=== PATIENT | male | born 1940 | race Caucasian/White ===

== ENCOUNTER 2016-11-21 15:11 | Inpatient (IN) | payer OTHER, MEDICARE ==
[~2016-11-21] VITALS: Ht 172.7 cm; Wt 122.5 kg
[~2016-11-21 15:11] MED LIST: AMBI10TA PO; ASPI1TAB PO; BRIM0.2S OU; COLA100C5 PO; COMBAER6 INH; CYCL10TA PO; DRIS50002 PO; FEBU40TA PO; FISH1000 PO; HYDR10TAB PO; INSUN SC; LATA5OPD OU; LORA10TA2 PO; LUBRIFRESH PM OU; MIRA3350 PO; MUPI2OI TOP; NEPHTA PO; OMEP20CA3 PO; PHOS667C5 PO; SIMV40TA2 PO; SODI15SS PO; TESS100C PO; VALS1TAB49 PO
[2016-11-21] MEDS ORDERED: CEFTAROLINE FOSAMIL 600 MG in D5W MINI-BAG PLUS 50 ML IV ONE (18:15)
[2016-11-21 19:28] LABS: BASO # 0.1 10^3/uL (0.0-0.2); BASO % 0.7 % (0.0-1.0); EOS # 0.4 10^3/uL (0.0-0.50); EOS % 3.7 % (0.0-3.0); IMMATURE GRANULOCYTE % 0.4 % (0-0); LYMPH # 1.8 10^3/uL (1.5-4.5); LYMPH % 16.7 % (24.0-44.0); MEAN CORPUSCULAR HEMOGLOBIN 30.8 pg (27.0-33.0); MEAN CORPUSCULAR HGB CONC 32.7 g/dl (32.0-36.5); MEAN CORPUSCULAR VOLUME 94.3 fl (80.0-96.0); MONO # 0.8 10^3/uL (0.0-0.8); MONO % 7.4 % (0.0-5.0); NEUTROPHILS # 7.5 10^3/uL (1.8-7.7); NEUTROPHILS % 71.1 % (36.0-66.0); PLATELET COUNT, AUTOMATED 325 10^3/uL (150-450); RED CELL DISTRIBUTION WIDTH 14.6 % (11.5-14.5); WHITE BLOOD COUNT 10.6 10^3/uL (4.0-10.0)
[2016-11-21] MEDS ORDERED: VITA100066 PO (19:34)
[2016-11-21] MEDS ORDERED: CLEADRO8 OU (19:34)
[2016-11-21] MEDS ORDERED: [UNRECOGNIZED DRUG - CODE] OU (19:34)
[2016-11-21] MEDS ORDERED: ALBU83IN INH (19:34)
[2016-11-21] MEDS ORDERED: VITA10002 PO (19:34)
[2016-11-21] MEDS ORDERED: SIMV20TA2 PO (19:34)
[2016-11-21] MEDS ORDERED: TYLE1TAB5 PO (19:34)
[2016-11-21 19:46] LABS: ALBUMIN 3.8 GM/DL (3.2-5.2); ALBUMIN/GLOBULIN RATIO 1.03 (1.00-1.93); ALKALINE PHOSPHATASE 72 U/L (45-117); ALT/SGPT 24 U/L (12-78); ANION GAP 15 MEQ/L (8-16); AST/SGOT 15 U/L (15-37); BILIRUBIN,DIRECT < 0.1 MG/DL (0.0-0.2); BILIRUBIN,TOTAL 0.3 MG/DL (0.2-1.0); BLOOD UREA NITROGEN 28 MG/DL (7-18); CALCIUM LEVEL 7.8 MG/DL (8.8-10.2); CARBON DIOXIDE LEVEL 26 MEQ/L (21-32); CHLORIDE LEVEL 94 MEQ/L (98-107); CREATININE FOR GFR 5.21 MG/DL (0.70-1.30); GLOMERULAR FILTRATION RATE 11.6 (>42); GLUCOSE, FASTING 191 MG/DL (83-110); MAGNESIUM LEVEL 1.7 MG/DL (1.8-2.4); PHOSPHORUS LEVEL 3.5 MG/DL (2.5-4.9); POTASSIUM SERUM 3.1 MEQ/L (3.5-5.1); SODIUM LEVEL 135 MEQ/L (136-145); TOTAL PROTEIN 7.5 GM/DL (6.4-8.2)
[2016-11-21] MEDS: LATANOPROST 0.005% OPHTH SOLN 2.5 ML OU SCH (21:00)
[2016-11-21] MEDS: VALSARTAN 40MG TABLET (DIOVAN) PO SCH (21:00)
[2016-11-21] MEDS: LACRILUBE (AKWA TEARS) OPHTH OINT 3.5 GM OU SCH (21:00)
[2016-11-21] MEDS ORDERED: GLUCAGON FOR INJ 1 MG VIAL (J1610) SC PRN (21:15)
[2016-11-21] MEDS ORDERED: DEXTROSE 50% 50 ML SYRINGE IV PRN (21:15)
[2016-11-21] MEDS ORDERED: BISACODYL 5 MG TAB PO PRN (21:15)
[2016-11-21] MEDS ORDERED: GLUCOSE 4 GM CHEW TABLET PO PRN (21:15)
[2016-11-21] MEDS: IPRATROPIUM 0.5MG/ALBUTEROL 2.5MG INH SOL UD 3ML (DUONEB)(J7620) INH SCH (23:37)
[2016-11-21] MEDS: zolPIDEM TARTRATE 10MG TAB PO SCH (23:57)
[2016-11-21] MEDS: SENOKOT S TAB PO SCH (23:57)
[2016-11-21] MEDS: CYCLOBENZAPRINE 10 MG TAB PO SCH (23:57)
[2016-11-21] MEDS: SIMVASTATIN 20 MG TAB PO SCH (23:57)
[2016-11-22] VITALS: BP 135/78
[2016-11-22] MEDS: ACETAMINOPHEN 500 MG TAB PO PRN ×2 (00:02→12:08)
[2016-11-22] MEDS ORDERED: MAG SULF 1GM/100ML (MAG RUN) 1 GM in APPROPRIATE DILUENT 1 EA IV ONE (01:15)
[2016-11-22] MEDS: HumaLOG INSULIN (NovoLOG) PER UNIT SC SCH ×5 (01:18→21:18)
[2016-11-22 06:00] VITALS: BP 116/77
[2016-11-22] MEDS: HEPARIN SOD (PORCINE) 5000 UNITS/ML VIAL SC SCH ×3 (06:06→21:17)
--- NOTE | 2016-11-22 06:59 | HPE ---
DATE OF ADMISSION: 11/21/2016 PRIMARY CARE PROVIDER: Dr. Cobb CHIEF COMPLAINT: Patient was sent from dialysis unit by Dr. Cobb for left lower extremity open wound with discharge and surrounding cellulitis. PAST MEDICAL HISTORY: 1. End-stage renal disease (ESRD) on hemodialysis Monday, Monday, Monday. 2. Chronic obstructive pulmonary disease (COPD). 3. Diabetes. 4. Morbid obesity. 5. Chronic back pain. 6. Gastroesophageal reflux disease (GERD). 7. Hyperlipidemia. 8. Gout. 9. Vitamin D deficiency. 10. Hyperphosphatemia. 11. Glaucoma. 12. Depression. 13. Chronic bilateral venous stasis. HISTORY OF PRESENT ILLNESS: This is a 76-year-old male with the above past medical history who was at his dialysis unit getting his routine hemodialysis today, when he was seen by the member services representative and was noted to have open wound on the left day with surrounding increased redness suggestive of cellulitis, who was sent to the emergency room for evaluation. In the emergency department (ED), patient had a white count of 10.6. However, he was afebrile. He did have a small superficial skin breakdown on the left day with some serosanguineous discharges, with some surrounding increased redness compared to his chronic redness associated with his chronic venous stasis. As per patient, this happened about 4 days ago when he had bumped his leg into an obstacle. Since then, he has been dressing it at home. However, it does not seem to be improving. He denied any fever or chills. Denied any chest pain, shortness of breath. Denied any abdominal pain, nausea, vomiting or diarrhea. PAST SURGICAL HISTORY: Appendectomy, AV fistula creation and AV graft placement previously, which failed and PermaCath placement previously, also. SOCIAL HISTORY: Does not smoke. Does not drink. There is no history of recreational drug abuse. FAMILY HISTORY: Significant for diabetes and end-stage renal disease. Patient' s daughter is also on dialysis. ALLERGIES: Patient is allergic to CODEINE, SUDAFED and OXYCODONE. HOME MEDICATIONS: - albuterol sulfate 2.5 mg inhalation twice a day - Combivent MDI one puff inhalation four times a day - aspirin 81 mg daily - brimonidine one drop both eye twice a day - calcium acetate 1334 mg by mouth with meals - cholecalciferol 1000 units by mouth daily - Clear Eyes for dry eyes one drop both eye twice a day - cyanocobalamin 1000 mcg by mouth daily - cyclobenzaprine 10 mg at bedtime - docusate sodium 100 mg by mouth twice a day - Uloric 40 mg by mouth three times a week (Monday, and Monday) - fish oil 2000 mg by mouth daily - NPH insulin 30 units subcutaneously twice a day - latanoprost eye drop one drop both eye at bedtime - loratadine 10 mg by mouth daily - Lubricant Eye Nighttime one ointment both eye at bedtime - mupirocin ointment one dose topically daily as needed, skin sores to be applied to the leg - omeprazole 40 mg by mouth daily - MiraLAX one packet by mouth daily - simvastatin 20 mg by mouth at bedtime - Kayexalate 15 gram by mouth once a week on Sundays - Tylenol Extra Strength PM 500/25 one tablet by mouth at bedtime - valsartan 40 mg by mouth twice a day - vitamin B complex, C and folic acid one capsule by mouth daily - vitamin D 50,000 units once a week - Ambien 10 mg by mouth at bedtime REVIEW OF SYSTEMS: Patient denied any shortness of breath. Denied any cough or phlegm. Denied any chest pain. Denied any abdominal pain, nausea, vomiting or diarrhea. He did complain of some constipation for the past 2 days. Has chronic low back pain. Does complain of the sore on his left day with some discharges for the past 4 days. However, does not complain of any increased pain. PHYSICAL EXAMINATION: Vital signs: Temperature 97.2. Pulse 88. Respiratory rate 20. Blood pressure 132/65. Pulse oximetry 92% in room air. General: Patient awake, alert, oriented times three, sitting up in chair, in no acute distress. HEENT: Normocephalic, atraumatic. Moist mucous membranes. Anicteric eyes. Chest: Clear to auscultation. Cardiovascular: S1, S2, regular. No rub, murmur or gallop. Abdomen: Obese, soft, nontender. Bowel sounds present. Extremities: Bilateral bipedal edema with chronic venous stasis changes. There is about 3 cm x 2 cm superficial ulceration on the left day with peeling skin and surrounding erythema. LABORATORY DATA: WBC 10.6, hemoglobin 13, platelet 325. Sodium 135, potassium 3.1, chloride 94, bicarbonate 26, BUN 28, creatinine 5.2, glucose 191, calcium 7.8, phosphorus 3.5, magnesium 1.7. Liver function tests are normal. ASSESSMENT AND PLAN: This is a 76-year-old male with end-stage renal disease on hemodialysis admitted for left leg cellulitis. Plan for left leg cellulitis: Will give the patient ceftaroline, will send blood cultures and wound cultures and adjust antibiotics based on cultures. ESRD: Patient got his hemodialysis today. He is again due for hemodialysis on Monday. He appears to be in acceptable volume status. COPD: Does not seem to be in any exacerbation. Will continue with albuterol MDI as per home dosage. Diabetes: Agent glucose acceptable control. Will continue with NPH and will also add lispro per sliding scale. Morbid obesity: Complicating care. Hypertension: Will continue with valsartan. Hyperlipidemia: Will continue with simvastatin. Gout: Will continue with Uloric. Chronic constipation: Will give Senokot-S as well as Dulcolax. Hyperphosphatemia: Will continue with PhosLo. Vitamin D deficiency: Will continue with home medications. Deep venous thrombosis (DVT) prophylaxis: Has been ordered. Gastrointestinal (GI) prophylaxis: Patient is on omeprazole. Will continue. MTDD
[2016-11-22] MEDS: IPRATROPIUM 0.5MG/ALBUTEROL 2.5MG INH SOL UD 3ML (DUONEB)(J7620) INH SCH ×2 (07:40→11:50)
[2016-11-22] MEDS: SENOKOT S TAB PO SCH ×2 (09:00→21:16)
[2016-11-22] MEDS: MIRALAX *UNIT DOSE* 17GM PACKET PO SCH (09:00)
[2016-11-22] MEDS ORDERED: ALBUTEROL SULFATE 2.5 MG/0.5 ML INH NEB SOLN INH SCH (09:00)
[2016-11-22] MEDS: CEFTAROLINE FOSAMIL 200 MG in D5W 50 ML IV SCH ×2 (09:17→21:18)
[2016-11-22] MEDS: CYANOCOBALAMIN 500 MCG TAB PO SCH (09:18)
[2016-11-22] MEDS: ASPIRIN 81 MG ENTERIC TAB PO SCH (09:18)
[2016-11-22] MEDS: CALCIUM ACETATE 667 MG GELCAP PO SCH ×3 (09:18→18:30)
[2016-11-22] MEDS: VITAMIN D 1,000 INTERNATIONAL UNITS TABLET PO SCH (09:18)
[2016-11-22] MEDS: LORATADINE 10 MG TAB PO SCH (09:19)
[2016-11-22] MEDS: OMEPRAZOLE 20 MG CAP PO SCH (09:19)
[2016-11-22] MEDS: VALSARTAN 40MG TABLET (DIOVAN) PO SCH ×2 (09:21→21:16)
[2016-11-22 11:09] LABS: MEAN CORPUSCULAR HEMOGLOBIN 30.6 pg (27.0-33.0); MEAN CORPUSCULAR HGB CONC 32.2 g/dl (32.0-36.5); MEAN CORPUSCULAR VOLUME 95.1 fl (80.0-96.0); RED CELL DISTRIBUTION WIDTH 14.2 % (11.5-14.5); WHITE BLOOD COUNT 9.3 10^3/uL (4.0-10.0)
[2016-11-22 11:37] LABS: CALCIUM LEVEL 8.7 MG/DL (8.8-10.2); CREATININE FOR GFR 6.99 MG/DL (0.70-1.30); GLOMERULAR FILTRATION RATE 8.2 (>42); MAGNESIUM LEVEL 1.9 MG/DL (1.8-2.4); POTASSIUM SERUM 3.4 MEQ/L (3.5-5.1)
[2016-11-22] MEDS: FEBUXOSTAT 40 MG TABLET (ULORIC) PO SCH (11:37)
[2016-11-22] MEDS: HumuLIN N INSULIN (NovoLIN N) PER UNIT SC SCH ×2 (11:37→21:17)
[2016-11-22] MEDS: NEPHRO-VIT TAB (NEPHROCAPS) PO SCH (11:37)
[2016-11-22 14:00] VITALS: BP 132/79
--- NOTE | 2016-11-22 15:31 | IPN ---
DATE: 11/22/2016 SUBJECTIVE: The patient is seen and examined in the room today. The patient stated he is feeling the same. No fever. No chills. Per patient, patient stated he bumped his leg on the left anterior day causing the skin breakage. Per record, the wound was examined during dialysis yesterday and there was some purulent discharge and there was some foul smelling from the wound. OBJECTIVE: VITAL SIGNS: Temperature is 97, pulse is 69, respirations 18, blood pressure is 116/77, pulse oximetry is 95% in room air. GENERAL: No sign of acute distress, alert and oriented times three. HEENT: Normocephalic, atraumatic. Extraocular motor grossly intact. CARDIOVASCULAR: Positive S1, S2, regular rate. LUNGS: Clear to auscultation bilaterally. ABDOMEN: Obese, soft, nontender, nondistended. Bowel sounds present. EXTREMITIES: There is some extensive bilateral lower extremity erythema below the knee. There are two superficial lacerations of the left day. Dressing was removed. At the time of examination, I cannot appreciate any purulent discharge. They do have some swelling around the skin breakage. There is bilateral lower extremity edema. LABORATORY DATA: WBC is 9.3, hemoglobin is 12.4, hematocrit 38.5, platelet count is 305. Sodium is 136, potassium is 3.4, chloride is 95, carbon dioxide 28, BUN 43, creatinine 6.99, GFR is 8.2, fasting glucose 270, calcium is 8.7, magnesium 1.9. Microbiology: Blood cultures are pending times two sets. ASSESSMENT AND PLAN: 1. Left lower extremity cellulitis. The patient is started on IV Teflaro. We will followup with the blood cultures. 2. End-stage renal disease. Nephrology consulted. At baseline, the patient is on a Monday, Monday and Monday dialysis schedule. 3. Chronic obstructive pulmonary disease (COPD). Currently, he does not have any exacerbation. Continue home medications. Continue nebulizer treatment as needed. 4. Diabetes. The patient will be on consistent-carbohydrate diet, on sliding scale. 5. Hypertension. Blood pressure is in the satisfactory range. The patient is on Diovan 40 mg by mouth twice a day. 6. Gastroesophageal reflux disease, on Prilosec 40 mg by mouth daily. 7. Hyperlipidemia, on simvastatin. 8. Gout, on Uloric. 9. History of depression. 10. History of glaucoma. 11. History of chronic bilateral venous stasis. 12. Deep vein thrombosis (DVT) prophylaxis. The patient is on heparin. MTDD
[2016-11-22] MEDS: IPRATROPIUM 0.5MG/ALBUTEROL 2.5MG INH SOL UD 3ML (DUONEB)(J7620) NEB SCH (20:00)
--- NOTE | 2016-11-22 21:05 | CR ---
DATE OF CONSULTATION: 11/22/2016 CONSULTATION REPORT FOR: Lisa Newton DO REASON FOR CONSULTATION: Is to assist in the management of end-stage renal disease in this gentleman who is admitted with cellulitis. HISTORY OF PRESENT ILLNESS: Mr. Mota is a 76-year-old gentleman with known history of diabetes, hypertension, coronary artery disease, end-stage renal disease and congestive heart failure. He was sent to emergency room at [facility] from dialysis due to left lower extremity cellulitis. Apparently he had a small ulcer and his was trying to take care of it at home. The patient developed redness and foul-smelling and was sent from dialysis yesterday. The patient did complete his dialysis treatment prior to admission. PAST MEDICAL AND SURGICAL HISTORY: Significant for: 1. Longstanding diabetes currently on insulin. 2. Morbid obesity. 3. Hypertension. 4. Congestive heart failure. 5. Coronary artery disease. 6. End-stage renal disease requiring maintenance hemodialysis. 7. History of hyperlipidemia. 8. Gout. 9. Depression. 10. History of chronic venous stasis. Past surgical history is significant for appendectomy, AV fistula creation, a temporary Perma-Cath placement which has been now removed. MEDICATIONS: His home medications include: - albuterol inhaler and Combivent as needed for shortness of breath - aspirin 81 mg daily - calcium acetate two capsules three times a day with meals - vitamin D 1000 units daily - vitamin B12 1000 mcg daily - Colace 100 mg twice a day - Uloric 40 mg daily - fish oil 2000 mg daily - Humulin N insulin 30 units twice a day - omeprazole 40 mg daily - simvastatin 20 mg daily - Tylenol Extra Strength as needed for pain - multivitamin one tablet daily - valsartan 40 mg twice a day ALLERGIES: The patient has allergy to CODEINE, SUDAFED and OXYCODONE. PERSONAL AND SOCIAL HISTORY: The patient is and lives with his . There is no history of alcohol or drug use. FAMILY HISTORY: There is significant family history for diabetes and end-stage renal disease. The patient's one daughter also has diabetes and end-stage renal disease. REVIEW OF SYSTEMS: The patient denies any fever or chills. Ears, nose and throat are unremarkable. Cardiovascular system is significant for chronic leg edema and shortness of breath. He denies any chest pain. Respiratory system is significant for COPD. The patient denies any hemoptysis or pleuritic type of chest pain. GI system is negative for nausea, vomiting or diarrhea. system is negative for dysuria or hematuria. Endocrine system is significant for diabetes and hyperparathyroidism. Psychosocial system is significant for depression. Musculoskeletal system significant for chronic back pain, degenerative arthritis, morbid obesity and stasis edema. Neurological system is significant for peripheral neuropathy. There is no history of seizures. Hematological system is negative for chronic anticoagulation. He does have anemia of chronic kidney disease and GI bleed in the past. Skin is as per history of present illness. PHYSICAL EXAMINATION: Temperature 97 degrees Fahrenheit, heart rate 70 per minute and respiratory rate 18 per minute. Blood pressure 116/77 mmHg and oxygen saturation 95% on room air. Head is atraumatic. Neck is obese, supple and without JVD. Pupils are equal and reactive to light and sclerae is anicteric. Ears, nose and throat are unremarkable. Heart exam reveals regular S1 and S2. There is no pericardial friction rub. Lungs with moderate bilateral air entry and no wheezing or rales. Abdomen obese, soft and nontender. Extremities have no cyanosis or clubbing. Left leg has erythema and two small ulcers. There is edema on both lower extremities. AV fistula in left arm is patent. LABORATORY DATA: On admission WBC count 10.6, hemoglobin 13.0 and hematocrit 39.8. Sodium 135, potassium 3.1. BUN 28 and creatinine 5.21. PROBLEMS: 1. End-stage renal disease. The patient completed his dialysis treatment yesterday prior to admission. He will be scheduled for next hemodialysis on 11/23/2016. At this point there is no indication for emergent dialysis today. His volume status is reasonable and we will monitor closely. 2. Hypokalemia. This is on the labs that were drawn just after dialysis. His potassium level is likely to improve. We can give him one dose of 20 mEq potassium chloride unless his potassium level improves spontaneously. 3. Left leg cellulitis. The patient is diabetic with cellulitis. I recommend to continue with IV antibiotics for now. 4. Hypertension. Blood pressure is very well controlled and we will continue to monitor. At this point he is not on any significant antihypertensive medications. 5. Gout. The patient does have history of gout and remains on Uloric 40 mg daily. I recommend to continue with the same. I thank you for involving me in the care of Mr. Mota. I will follow him along with you.
[2016-11-22] MEDS: SIMVASTATIN 20 MG TAB PO SCH (21:15)
[2016-11-22] MEDS: zolPIDEM TARTRATE 10MG TAB PO SCH (21:16)
[2016-11-22] MEDS: CYCLOBENZAPRINE 10 MG TAB PO SCH (21:16)
[2016-11-22] MEDS: LATANOPROST 0.005% OPHTH SOLN 2.5 ML OU SCH (21:17)
[2016-11-22] MEDS: LACRILUBE (AKWA TEARS) OPHTH OINT 3.5 GM OU SCH (21:17)
[2016-11-22 22:00] VITALS: BP 136/49
[2016-11-23 06:00] VITALS: BP 105/50
[2016-11-23] MEDS: CEFTAROLINE FOSAMIL 200 MG in D5W 50 ML IV SCH ×2 (06:11→21:51)
[2016-11-23] MEDS: HEPARIN SOD (PORCINE) 5000 UNITS/ML VIAL SC SCH ×3 (06:11→21:52)
[2016-11-23] MEDS: CYANOCOBALAMIN 500 MCG TAB PO SCH (06:12)
[2016-11-23] MEDS: VITAMIN D 1,000 INTERNATIONAL UNITS TABLET PO SCH (06:12)
[2016-11-23] MEDS: LORATADINE 10 MG TAB PO SCH (06:12)
[2016-11-23] MEDS: ASPIRIN 81 MG ENTERIC TAB PO SCH (06:12)
[2016-11-23] MEDS: MIRALAX *UNIT DOSE* 17GM PACKET PO SCH (06:12)
[2016-11-23] MEDS: SENOKOT S TAB PO SCH ×2 (06:12→21:52)
[2016-11-23] MEDS: OMEPRAZOLE 20 MG CAP PO SCH (06:21)
[2016-11-23 06:30] LABS: CALCIUM LEVEL 8.6 MG/DL (8.8-10.2); CREATININE FOR GFR 8.74 MG/DL (0.70-1.30); GLOMERULAR FILTRATION RATE 6.4 (>42); POTASSIUM SERUM 3.6 MEQ/L (3.5-5.1)
[2016-11-23] MEDS: NEPHRO-VIT TAB (NEPHROCAPS) PO SCH (06:30)
[2016-11-23] MEDS: CALCIUM ACETATE 667 MG GELCAP PO SCH ×3 (07:07→17:25)
[2016-11-23] MEDS: IPRATROPIUM 0.5MG/ALBUTEROL 2.5MG INH SOL UD 3ML (DUONEB)(J7620) NEB SCH ×2 (07:24→19:47)
[2016-11-23] MEDS: HumaLOG INSULIN (NovoLOG) PER UNIT SC SCH ×4 (07:30→21:53)
[2016-11-23] MEDS: VALSARTAN 40MG TABLET (DIOVAN) PO SCH ×2 (08:15→21:53)
[2016-11-23] MEDS: LEVEMIR (INSULIN DETEMIR) 1 UNITS/0.01ML SC SCH ×2 (08:16→21:54)
[2016-11-23] MEDS ORDERED: PREVNAR 13 VACCINE SYRINGE (CPT CODE:90670) IM ONE (09:00)
[2016-11-23] MEDS ORDERED: POTASSIUM CHLORIDE 10 MEQ SR TABLET PO ONE (12:00)
[2016-11-23] MEDS ORDERED: LIDOCAINE 1% SDV 5 ML VIAL SQ ONE (12:15)
[2016-11-23] MEDS ORDERED: HEPARIN 1,000 UNITS/ML 10ML VIAL (FOR RADIOLOGY& DIALYSIS ONLY) IV ONE (12:15)
[2016-11-23 13:17] LABS: MEAN CORPUSCULAR HEMOGLOBIN 30.3 pg (27.0-33.0); MEAN CORPUSCULAR HGB CONC 32.4 g/dl (32.0-36.5); MEAN CORPUSCULAR VOLUME 93.6 fl (80.0-96.0); RED CELL DISTRIBUTION WIDTH 14.2 % (11.5-14.5); WHITE BLOOD COUNT 9.2 10^3/uL (4.0-10.0)
[2016-11-23 14:00] VITALS: BP 115/77
--- NOTE | 2016-11-23 15:07 | IPN ---
DATE: 11/23/2016 SUBJECTIVE: The patient is examined at the dialysis room today. The patient stated the swelling and discomfort of the left lower extremity wound has been improving. No fever or chills. No drainage noted from the wound. OBJECTIVE: VITAL SIGNS: Temperature is 97.3, pulse 59, respiration rate is 16, blood pressure 105/50, pulse ox 97% in room air. GENERAL: Morbidly obese. No sign of acute distress. Alert and oriented times three. HEENT: Normocephalic atraumatic. Extraocular muscles grossly intact. CARDIOVASCULAR: S1, S2, regular rate. LUNGS: Clear lungs to auscultation bilaterally. ABDOMEN: Morbidly obese, soft, nontender. Nondistended. Bowel sounds present. EXTREMITIES: Patient has a wound at the left lower extremity located anterior day on exam. There is no active purulent discharge. Not foul smelling. There is still significant erythema and swelling at the skin lesion site. There is some bilateral lower extremity edema, left greater than right. LABORATORY DATA: WBC 9.2, hemoglobin 12.7, hematocrit 39.2, platelet count 323, ESR 39. Sodium 137, potassium 3.6, chloride 96, carbon dioxide 28, BUN 63, creatinine 8.74, GFR 6.4, fasting glucose 77, calcium 8.6, magnesium 2, C-reactive protein 1.53. ASSESSMENT: 1. Left lower extremity cellulitis. The patient has been on IV Teflaro. The wound culture showed Enterococcus faecalis. Blood cultures preliminary show no growth up to 24 hours times two sets. Wait for the official report. 2. Endstage renal disease on hemodialysis. The patient's dialysis days Monday, Monday, and Monday. The patient is being dialyzed today. Will appreciate nephrology assistance. 3. Chronic obstructive pulmonary disease: Currently does not have any acute exacerbation. Continue nebulizer treatments as needed. 4. Diabetes: This morning the patient actually is hypoglycemic with a fasting glucose of 77 per patient. The patient does not have any significant decreased oral intake. At this time, we will hold the long-acting insulin and will follow the patient's sugar to see if this is a trend. 5. Hypertension: Blood pressure is in satisfactory range. This morning, there was an episode where the patient is mildly hypotensive. Blood pressure medications on hold this morning. Continue to follow. Usually the patient takes Diovan 40 mg by mouth twice a day. There is a holding parameter for the blood pressure medication. 6. Gout: On Uloric. 7. History of depression. 8. History of glaucoma. 9. History of bilateral venostasis. 10. Deep venous thrombosis prophylaxis on heparin.
--- NOTE | 2016-11-23 16:37 | IPN ---
DATE: 11/23/2016 Mr. Mota is seen this morning during hemodialysis. He is feeling well and denies any other complaints, other than pain in left leg. He is currently being treated for cellulitis and a small wound on his left leg. He slept well through the night and denies any dyspnea, chest pain, nausea or vomiting. He has no fever or chills. PHYSICAL EXAMINATION: Temperature 97.3 degrees Fahrenheit, heart rate 60 per minute and respiratory rate 16 per minute. Blood pressure 136/50 mmHg and oxygen saturation 97% on room air. Head is atraumatic. Neck is supple and without jugular venous distention (JVD) or thyroid enlargement. Pupils are equal and reactive to light and sclera is anicteric. Ears, nose and throat are unremarkable. Heart sounds are regular. Lungs clear to auscultation. Abdomen is obese, soft and nontender and bowel sounds are normal. Extremities have no cyanosis or clubbing. Left lower extremity cellulitis is about the same as yesterday. LABORATORY DATA: Today's laboratories show WBC count 9.3, hemoglobin 12.4, and hematocrit 38.5. Sodium is 136 and potassium 3.6. BUN 63 and creatinine 8.74. His C-reactive protein is 71.53. PROBLEMS: 1. End-stage renal disease. The patient is being dialyzed today and he is tolerating dialysis treatment very well. We are trying to remove about three liters of fluid. 2. Hypokalemia. His potassium level remains borderline low. We are dialyzing him with 3.0 mEq potassium bath. We will give him a dose of potassium chloride 40 mEq by mouth after dialysis today. 3. Anemia. His anemia has been stable and does not need any specific intervention at this point. 4. Left leg cellulitis. The patient remains on ceftaroline and there is no significant change in his left leg cellulitis since yesterday. We will continue to monitor closely. 5. Hypertension. Blood pressure is very well controlled and in fact somewhat low today. We will monitor closely during and after dialysis.
[2016-11-23] MEDS: CYCLOBENZAPRINE 10 MG TAB PO SCH (21:52)
[2016-11-23] MEDS: SIMVASTATIN 20 MG TAB PO SCH (21:52)
[2016-11-23] MEDS: zolPIDEM TARTRATE 10MG TAB PO SCH (21:52)
[2016-11-23] MEDS: LATANOPROST 0.005% OPHTH SOLN 2.5 ML OU SCH (21:55)
[2016-11-23] MEDS: LACRILUBE (AKWA TEARS) OPHTH OINT 3.5 GM OU SCH (21:55)
[2016-11-23] MEDS: ACETAMINOPHEN 500 MG TAB PO PRN (21:56)
[2016-11-23 22:00] VITALS: BP 148/70
[2016-11-24] MEDS: HEPARIN SOD (PORCINE) 5000 UNITS/ML VIAL SC SCH ×2 (05:37→13:16)
[2016-11-24 06:00] VITALS: BP 144/67
[2016-11-24 07:00] LABS: MEAN CORPUSCULAR HEMOGLOBIN 30.6 pg (27.0-33.0); MEAN CORPUSCULAR HGB CONC 31.5 g/dl (32.0-36.5); MEAN CORPUSCULAR VOLUME 97.2 fl (80.0-96.0); RED CELL DISTRIBUTION WIDTH 14.2 % (11.5-14.5); WHITE BLOOD COUNT 8.6 10^3/uL (4.0-10.0)
[2016-11-24] MEDS: IPRATROPIUM 0.5MG/ALBUTEROL 2.5MG INH SOL UD 3ML (DUONEB)(J7620) NEB SCH (07:10)
[2016-11-24 07:25] LABS: CALCIUM LEVEL 9.5 MG/DL (8.8-10.2); CREATININE FOR GFR 6.21 MG/DL (0.70-1.30); GLOMERULAR FILTRATION RATE 9.5 (>42); POTASSIUM SERUM 4.3 MEQ/L (3.5-5.1)
[2016-11-24 08:00] VITALS: BP 142/72
[2016-11-24] MEDS: HumaLOG INSULIN (NovoLOG) PER UNIT SC SCH ×2 (08:12→13:16)
[2016-11-24] MEDS: CALCIUM ACETATE 667 MG GELCAP PO SCH ×2 (08:12→13:16)
[2016-11-24] MEDS: OMEPRAZOLE 20 MG CAP PO SCH (08:54)
[2016-11-24] MEDS: CYANOCOBALAMIN 500 MCG TAB PO SCH (08:54)
[2016-11-24] MEDS: FEBUXOSTAT 40 MG TABLET (ULORIC) PO SCH (08:54)
[2016-11-24] MEDS: SENOKOT S TAB PO SCH (08:54)
[2016-11-24 08:56] VITALS: BP 142/72
[2016-11-24] MEDS: VITAMIN D 1,000 INTERNATIONAL UNITS TABLET PO SCH (08:56)
[2016-11-24] MEDS: NEPHRO-VIT TAB (NEPHROCAPS) PO SCH (08:56)
[2016-11-24] MEDS: LORATADINE 10 MG TAB PO SCH (08:56)
[2016-11-24] MEDS: VALSARTAN 40MG TABLET (DIOVAN) PO SCH (08:56)
[2016-11-24] MEDS: ASPIRIN 81 MG ENTERIC TAB PO SCH (08:56)
[2016-11-24] MEDS: LEVEMIR (INSULIN DETEMIR) 1 UNITS/0.01ML SC SCH (08:58)
[2016-11-24] MEDS: CEFTAROLINE FOSAMIL 200 MG in D5W 50 ML IV SCH (08:58)
[2016-11-24] MEDS: MIRALAX *UNIT DOSE* 17GM PACKET PO SCH (08:59)
[2016-11-24] MEDS ORDERED: SENN1TAB2 PO ×2 (10:18→15:22)
[2016-11-24] MEDS ORDERED: AUGM875T28 PO (10:18)
--- NOTE | 2016-11-24 11:26 | IPN ---
DATE: 11/24/2016 Mr. Mota is seen this morning on his bedside. He is feeling better and his left lower extremity cellulitis is improving. He denies any fever, chills, nausea, vomiting, dyspnea, or chest pain. He underwent his regular hemodialysis yesterday which he tolerated well. On physical examination, temperature 97.4 degrees Fahrenheit, heart rate 70 per minute, respiratory rate 16 per minute. Blood pressure 142/72 mmHg and oxygen saturation 94% on room air. Head is atraumatic. Neck is supple and without jugular venous distention (JVD) or thyroid enlargement. Heart sounds are regular and lungs clear to auscultation. Abdomen: Soft, obese and nontender. Bowel sounds normal. Extremities have no cyanosis or clubbing. Left lower leg cellulitis has improved significantly. He still has two small ulcers without any drainage or bleeding. Neurologically he is awake, alert and oriented times three. Today's labs show WBC count 8.6, hemoglobin 11.8 and hematocrit 37.5. Platelets 304. Sodium 136 and potassium 4.3. BUN 40 and creatinine 6.21. Glucose 219 and calcium 9.5. PROBLEMS: 1. Left leg cellulitis. The patient is improving clinically and has been afebrile. I have discussed with Dr. Lisa Newton and recommended that the patient be switched to oral antibiotic. He can be discharged to home and follow up as outpatient. 2. End-stage renal disease. The patient had regular hemodialysis yesterday. His next dialysis will be scheduled for November 25 as an outpatient. 3. Anemia. Anemia is very mild and does not need any intervention. 4. Diabetes. I have discussed with the patient about importance and need for good control of diabetes in order for his cellulitis to improve. The patient will monitor closely and continue with sliding scale at home. DISPOSITION: From a renal standpoint, the patient can be discharged to home today and he will follow up at the outpatient dialysis clinic tomorrow.
[2016-11-24 14:00] VITALS: BP 130/70
--- NOTE | 2016-11-24 15:36 | DSES ---
DATE OF ADMISSION: 11/23/2016 DATE OF DISCHARGE: 11/24/2016 PRIMARY CARE PROVIDER: Shivani Cobb MD CONSULTANTS: [employer], Shivani Cobb MD DISCHARGE DIAGNOSES: 1. Left lower extremity cellulitis. 2. End-stage renal disease on hemodialysis. 3. Chronic obstructive pulmonary disease (COPD). 4. Diabetes. 5. Hypertension. 6. Gout. 7. Depression. 8. History of glaucoma. 9. Bilateral venous stasis of the lower extremities. HOSPITALIZATION COURSE: Patient is a 76-year-old male who was sent from dialysis center to [facility] Emergency Room for worsening lower extremity wound. Culture was obtained, and patient was started on empiric antibiotics. [employer] C[employer]er, Dr. Cobb, has been consulted for inpatient hemodialysis. With antibiotic treatment, patient's wound showed some improvement. Later, the sensitivity came back and results have been reviewed and patient determined medically stable for discharge on 11/24/2016 with recommendation to finish a course of antibiotics for his cellulitis and patient recommended to followup with primary care provider in 1-2 weeks to re-evaluate the wound healing. OBJECTIVE: VITAL SIGNS: Temperature 97.4, pulse 70, respirations 16, blood pressure 142/72, pulse oximetry 94% in room air. LABORATORY DATA: WBC 8.6, hemoglobin 11.8, hematocrit 37.5, platelet count is 304, ESR is 39. Sodium is 136, potassium 4.3, chloride is 98, carbon dioxide 29, BUN 40, creatinine 6.21, GFR is 9.5, fasting glucose is 219, calcium is 9.5. Microbiology: Wound culture showed Enterococcus (E) faecalis. Blood cultures negative after 48 hours times two sets. DISCHARGE MEDICATION: - Augmentin 875 mg by mouth twice a day for 5 days - Senna-S two tablets by mouth twice a day as needed for constipation - albuterol inhalation twice a day - aspirin 81 mg by mouth daily - PhosLo 1334 mg by mouth with meals - vitamin D 1000 units by mouth daily - vitamin B12, 1000 mcg by mouth daily - cyclobenzaprine 10 mg by mouth nightly - Colace 100 mg by mouth twice a day - Uloric 40 mg by mouth three times a week - Novolin 30 units subcutaneously twice a day - loratadine 10 mg by mouth daily - omeprazole 40 mg by mouth daily - MiraLAX 17 grams by mouth daily - simvastatin 20 mg by mouth nightly - Tylenol Extra Strength one tablet by mouth nightly as needed - valsartan 20 mg by mouth twice a day - multivitamin one tablet by mouth daily - Ambien 10 mg by mouth nightly DISCHARGE INSTRUCTIONS: Discontinue lines. Discharge home. Activity as tolerated. Diet as tolerated. Patient is recommended to finish a course of Augmentin for his cellulitis. Patient recommended to followup with primary care provider in 1-2 weeks. DISCHARGE CONDITION: Stable. DISCHARGE TIME: Greater than 30 minutes. Edited: demetra 11/25/2016 1516
== END 2016-11-24 16:25 | disposition home or self-care (01) | DRG 602 ==
LOC: M ED 15:11 → M ED INP 21:10 → M MSPAV 22:41 → OBSVTOIN 11-23 13:42
PROVIDERS: ADMIT Internal Medicine Nephrology; ATTEND Internal Medicine
DX: L03.116 Cellulitis of left lower limb (principal); N18.6 End stage renal disease; I13.2 Hypertensive heart and chronic kidney disease with heart failure and with stage 5 chronic kidney disease, or end stage renal disease; E11.9 Type 2 diabetes mellitus without complications; F32.9 Major depressive disorder, single episode, unspecified; J44.9 Chronic obstructive pulmonary disease, unspecified; M10.9 Gout, unspecified; H40.9 Unspecified glaucoma; Z79.899 Other long term (current) drug therapy; Z79.82 Long term (current) use of aspirin; E66.01 Morbid (severe) obesity due to excess calories; M54.5 Low back pain; K21.9 Gastro-esophageal reflux disease without esophagitis; E55.9 Vitamin D deficiency, unspecified; I87.8 Other specified disorders of veins; K59.00 Constipation, unspecified; I25.10 Atherosclerotic heart disease of native coronary artery without angina pectoris; Z79.4 Long term (current) use of insulin; I50.9 Heart failure, unspecified; Z88.5 Allergy status to narcotic agent; Z88.2 Allergy status to sulfonamides; E87.6 Hypokalemia; D64.9 Anemia, unspecified

== ENCOUNTER 2016-12-16 17:05 | Emergency (ER) | payer OTHER, MEDICARE ==
[~2016-12-16] VITALS: Ht 172.7 cm; Wt 122.0 kg
[~2016-12-16 17:05] MED LIST changes: +ALBU83IN INH; +AUGM875T28 PO; +CLEADRO8 OU; +SENN1TAB2 PO; +SIMV20TA2 PO; +TYLE1TAB5 PO; +VITA10002 PO; +VITA100066 PO; +[UNRECOGNIZED DRUG - CODE] OU
[2016-12-16] MEDS ORDERED: MULT1CHW39 PO (17:42)
[2016-12-16] MEDS ORDERED: TYLE500T78 PO (17:42)
[2016-12-16] MEDS ORDERED: FEBU40TA PO (17:42)
[2016-12-16] MEDS ORDERED: VITA100067 PO (17:42)
[2016-12-16 17:54] VITALS: BP 131/79
== END 2016-12-16 20:42 | disposition home or self-care (01) ==
LOC: EDBD 17:05 → M ED 17:05
DX: I77.0 Arteriovenous fistula, acquired (principal); T82.838A Hemorrhage due to vascular prosthetic devices, implants and grafts, initial encounter; Y92.9 Unspecified place or not applicable; Y93.9 Activity, unspecified; I25.10 Atherosclerotic heart disease of native coronary artery without angina pectoris; I50.9 Heart failure, unspecified; E11.9 Type 2 diabetes mellitus without complications; I10 Essential (primary) hypertension; E78.5 Hyperlipidemia, unspecified; M10.9 Gout, unspecified; E11.40 Type 2 diabetes mellitus with diabetic neuropathy, unspecified; Z79.82 Long term (current) use of aspirin; Z79.4 Long term (current) use of insulin; Z79.899 Other long term (current) drug therapy; Z88.8 Allergy status to other drugs, medicaments and biological substances; Z88.5 Allergy status to narcotic agent

== ENCOUNTER → 2017-01-17 | Outpatient (CLI) | payer OTHER, MEDICARE ==
[~2017-01-17] MED LIST changes: +BENZ100C5 PO; +EPOG1000 INJ; +ISOVUE-300 61% 50ML VIAL (Q9967) As Ordered ONE; +MIDAZOLAM INJ 2 MG/2 ML VIAL (J2250) As Ordered ONE; +MULT1CHW39 PO; +TYLE500T78 PO; +VITA100067 PO; +fentaNYL 100 MCG/2 ML INJECTION (J3010) As Ordered ONE
--- NOTE | 2017-02-15 08:06 | REPIR ---
DATE OF PROCEDURE: 01/17/2017 PREPROCEDURE DIAGNOSIS: Endstage renal disease. Dysfunctional left brachiocephalic arteriovenous fistula with excessive bleeding during de-cannulization and presentation to the emergency room with excessive requiring suture placement. POSTPROCEDURE DIAGNOSIS: Endstage renal disease. Dysfunctional left brachiocephalic arteriovenous fistula with excessive bleeding during de-cannulization and presentation to the emergency room with excessive requiring suture placement. PROCEDURE: Left brachiocephalic arteriovenous fistulogram, retrograde left brachial artery angiogram, left cephalic vein angioplasty with 7 x 150 mm balloon. SURGEON: Dr. Silvano Chaudhry. CALIBRATION CHECKER: Junie Ewing and Jenni Jackson ANESTHESIA: Local sedation with 1 mg versed, 50 mcg fentanyl and 3 mL of 2% lidocaine. FLUORO TIME: 5.1 minutes. CONTRAST: 6 mL. SEDATION TIME: From 10:28 to 10:50 a.m. for a total of 22 minutes with the sedation and cardiopulmonary monitoring performed by the RN in the room under my direct supervision. I was present for a directed the entire case. COMPLICATIONS: None. DRAINS: None. SPECIMENS: None. IMPLANTS: None. INDICATION: The patient is a 76-year-old male with endstage renal disease who dialyses to a left brachiocephalic arteriovenous venous fistula, which is pulsatile and has had difficulty with excess bleeding on de-cannulization. The patient has required multiple trips to the emergency room for excess bleeding and suture placement. The patient will now undergo a fistulogram with possible angioplasty and stent. The risks, benefits and alternative treatment options were discussed with the patient. Alternative treatment options include but were not limited to no intervention. DESCRIPTION OF PROCEDURE: The patient was taken to the angiography suite and placed supine on the angiography room table and the left upper extremity was prepped and draped in the standard surgical fashion. The fistula was then cannulated with a micropuncture needle after anesthetizing the overlying skin with 1% lidocaine. A micropuncture wire was advanced to the micropuncture needle, this was upsized to a micropuncture sheath. A fistulogram was performed showing approximately 85% stenosis in the cephalic vein in the upper arm. The cephalic vein was then angioplastied with a 7 x 150 balloon with a followup fistulogram showing resolution of the stenosis. A retrograde left brachial artery angiogram was performed showing no intervention required. The sheath was removed and a #2-0 Prolene suture placed at the puncture site for hemostasis. Dressings were then applied. The patient tolerated the procedure well. All instrument, sponge and needle counts were correct at the end of the case. There were no complications. Dr. Chaudhry was present for and directed the entire case. The patient was discharged in stable condition after removal of the #2-0 Prolene suture with good hemostasis noted. RADIOLOGIC SUPERVISION AND INTERPRETATION: The initial fistulogram showed stenosis in the cephalic vein in the upper arm. This was angioplastied with a 7 x 150 balloon with good angiographic result on followup fistulogram showing no residual stenosis and no central venous stenosis or occlusion noted. A retrograde brachial artery angiogram was performed during inflation of the 7 x 150 mm balloon showing the remainder of the cephalic vein to be patent in the brachial artery with good flow in the brachial artery proximally. Distally, the arteriovenous anastomosis showed no stenosis at the arteriovenous venous anastomosis. The fistula had a strong thrill palpable at the completion of the intervention. Prior to intervention, the fistula was pulsatile.
== END | disposition home or self-care (01) ==
LOC: M IRPRO 08:57
PROVIDERS: ATTEND Surgery Vascular Surgery
DX: T82.858A Stenosis of other vascular prosthetic devices, implants and grafts, initial encounter (principal); N18.6 End stage renal disease; Z99.2 Dependence on renal dialysis
CPT/HCPCS: 36902; C1725; C1769; C1887; C1894; J2250; J3010; Q9967

== ENCOUNTER 2017-01-21 09:12 | Inpatient (IN) | payer MEDICARE, OTHER ==
[~2017-01-21] VITALS: Ht 172.7 cm; Wt 118.7 kg
[~2017-01-21 09:12] MED LIST changes: -BENZ100C5 PO; -EPOG1000 INJ; -ISOVUE-300 61% 50ML VIAL (Q9967) As Ordered ONE; -MIDAZOLAM INJ 2 MG/2 ML VIAL (J2250) As Ordered ONE; -fentaNYL 100 MCG/2 ML INJECTION (J3010) As Ordered ONE
[2017-01-21 09:57] LABS: BASO % 0.1 % (0.0-1.0); IMMATURE GRANULOCYTE % 1.1 % (0-0); LYMPH # 0.7 10^3/uL (1.5-4.5); LYMPH % 2.3 % (24.0-44.0); MEAN CORPUSCULAR HEMOGLOBIN 30.8 pg (27.0-33.0); MEAN CORPUSCULAR HGB CONC 32.1 g/dl (32.0-36.5); MONO % 7.9 % (0.0-5.0); NEUTROPHILS % 88.6 % (36.0-66.0); PLATELET COUNT, AUTOMATED 522 10^3/uL (150-450); RED CELL DISTRIBUTION WIDTH 15.4 % (11.5-14.5)
[2017-01-21 09:59] LABS: WHITE BLOOD COUNT 31.2 10^3/uL (4.0-10.0)
[2017-01-21] MEDS ORDERED: IPRATROPIUM 0.5MG/ALBUTEROL 2.5MG INH SOL UD 3ML (DUONEB)(J7620) NEB ONE ×2 (10:00→10:15)
[2017-01-21 10:01] LABS: MONO # 2.5 10^3/uL (0.0-0.8); NEUTROPHILS # 27.7 10^3/uL (1.8-7.7)
--- NOTE | 2017-01-21 10:01 | REP ---
Clinical: Cough and dyspnea. Comparison: 10/14/2015. Findings: Examination is severely limited by portable technique, underpenetration, and poor inspiratory effort. Stable cardiomegaly. Perihilar and basilar opacities (left greater than right) cannot be excluded. Differential diagnosis would include atelectasis/infiltrate as well as early pulmonary vascular congestion. No definite effusion. No pneumothorax. Skeletal structures are intact. Impression: Limited examination. Cannot exclude basilar atelectasis/infiltrate or early pulmonary vascular congestion. Signed by Barron Espinoza MD 01/21/2017 09:52 A
[2017-01-21 10:09] LABS: POS COUNT POS FLAG; POSITIVE DIFF POS FLAG
[2017-01-21 10:10] LABS: INR 1.27
[2017-01-21 10:17] LABS: ALBUMIN 3.1 GM/DL (3.2-5.2); ALBUMIN/GLOBULIN RATIO 0.65 (1.00-1.93); BILIRUBIN,DIRECT 0.1 MG/DL (0.0-0.2); BILIRUBIN,TOTAL 0.4 MG/DL (0.2-1.0); CALCIUM LEVEL 9.2 MG/DL (8.8-10.2); CREATININE FOR GFR 6.15 MG/DL (0.70-1.30); GLOMERULAR FILTRATION RATE 9.6 (>42); TOTAL PROTEIN 7.9 GM/DL (6.4-8.2)
[2017-01-21] MEDS ORDERED: CEFTRIAXONE SOD 1 GM in APPROPRIATE DILUENT 1 EA IV ONE (10:45)
[2017-01-21] MEDS ORDERED: BENZ100C5 PO (11:25)
[2017-01-21] MEDS ORDERED: FISH1000 PO (11:25)
[2017-01-21] MEDS ORDERED: SENN1TAB2 PO (11:25)
[2017-01-21] MEDS ORDERED: LATA5OPD OU (11:25)
[2017-01-21] MEDS ORDERED: EPOG1000 INJ (11:25)
[2017-01-21] MEDS ORDERED: TYLE1TAB5 PO (11:25)
[2017-01-21] MEDS ORDERED: DRIS50002 PO (11:25)
[2017-01-21] MEDS ORDERED: ALBU83IN INH (11:25)
--- NOTE | 2017-01-21 12:30 | REP ---
Clinical: Abdominal pain with vomiting. Findings: High-grade small bowel obstruction is appreciated with collapsed appearance to the distal and terminal ileum in the right lower quadrant as well as evidence for suspected pneumatosis intestinalis involving the jejunum raising the possibility of bowel ischemia. The colon is collapsed and relatively normal. There is no evidence for free air or drainable collection/abscess. Findings include markedly distended fluid-filled stomach and duodenum. Liver, spleen, pancreas, distended gallbladder, bilateral adrenal glands and atrophic kidneys are relatively normal by noncontrast evaluation. 2 cm right renal cyst cannot be excluded. Pelvis demonstrates collapsed bladder and age appropriate prostate/seminal vesicles. No ascites. Atherosclerotic changes to the vasculature noted without aneurysm. Musculoskeletal structures demonstrate age-related degenerative changes. Lung bases demonstrate chronic interstitial disease with mild basilar atelectasis. Impression: 1. Findings are compatible with high-grade small bowel obstruction and very suspicious for pneumatosis intestinalis suggesting associated bowel ischemia. No free air, free fluid or drainable collection/abscess. 2. Remainder of the examination as described above. Signed by Barron Espinoza MD 01/21/2017 12:21 P
--- NOTE | 2017-01-21 12:32 | REP ---
Clinical: Chest and abdominal pain with vomiting. Technique: Axial noncontrast images from the thoracic inlet to the upper abdomen with coronal and sagittal re-formations. Findings: Lung gilliam demonstrate chronic age-related interstitial changes along with suspected mild basilar fibroatelectatic change. No consolidation. No pleural effusion or pneumothorax. Tracheobronchial tree is patent. No obvious adenopathy. Atherosclerotic changes to the aorta and coronary arteries noted without aortic aneurysm or cardiomegaly. No pericardial effusion. Upper abdomen demonstrates markedly distended stomach with evidence for small bowel obstruction as well as distended gallbladder. Impression: 1. Chronic interstitial changes with trace basilar atelectasis. 2. Upper abdomen suspicious for small bowel obstruction and distended gallbladder. Signed by Barron Espinoza MD 01/21/2017 12:23 P
[2017-01-21] MEDS ORDERED: MEROPENEM INJ 1 GM in APPROPRIATE DILUENT 1 EA IV ONE (13:15)
[2017-01-21] MEDS ORDERED: GLUCAGON FOR INJ 1 MG VIAL (J1610) SC PRN (13:45)
[2017-01-21] MEDS ORDERED: GLUCOSE 4 GM CHEW TABLET PO PRN (13:45)
[2017-01-21] MEDS ORDERED: ONDANSETRON 4MG/2ML VIAL (J2405) IV PRN (13:45)
[2017-01-21] MEDS ORDERED: DEXTROSE 50% 50 ML SYRINGE IV PRN (13:45)
[2017-01-21] MEDS ORDERED: MUPIROCIN 2% OINT 22 GM TUBE TOP PRN (13:45)
[2017-01-21] MEDS ORDERED: IPRATROPIUM 0.5MG/ALBUTEROL 2.5MG INH SOL UD 3ML (DUONEB)(J7620) NEB PRN (13:45)
[2017-01-21] MEDS ORDERED: IPRATROPIUM 0.5MG/ALBUTEROL 2.5MG INH SOL UD 3ML (DUONEB)(J7620) NEB SCH (14:00)
[2017-01-21] MEDS ORDERED: NS 500 ML IV ONE (14:00)
--- NOTE | 2017-01-21 14:35 | CR ---
DATE OF CONSULTATION: 01/21/2017 REQUESTING PROVIDER: Dr. Uriaret PRIMARY CARE PROVIDER: Dr. Burgess TUBULAR PRODUCTS FABRICATOR: Dr. Cobb HOSPITALIST PROVIDER COVERING FOR THIS PATIENT: Lisa Newton DO CHIEF COMPLAINT: Nausea, vomiting, abdominal pain. REASON FOR CONSULTATION: Medical management. HISTORY OF PRESENT ILLNESS: This is a 76-year-old male patient with underlying medical history of end stage renal disease on dialysis Monday, Monday, and Monday, diabetes insulin dependent, morbid obesity, chronic obstructive pulmonary disease (COPD) not on oxygen at home, depression, gastroesophageal reflux disease (GERD), gout, dyslipidemia, and obstructive sleep apnea (BRIAN). As per patient, for the past three days the patient has been having poor oral intake. On Monday , the patient underwent dialysis and during the process the patient developed an episode of hypotension, was given 1.1 liters of fluid bag. Subsequently last night the patient reported to have significant nausea and vomiting, more than 10 episodes, with dry heaving, also burping. Last bowel movement was about three days. The patient has poor oral intake, subsequently, and also worsening abdominal distention, who presented to the hospital, reported diffuse aching abdominal pain with no relieving factors. Denies any chest pain, pressure or discomfort, fevers or chills. Denies any sick contacts. Denies any diarrhea. Has a history of constipation. Also reported 1+ bilateral lower extremity edema. ALLERGIES: 1. ASPARTAME. 2. CODEINE. 3. OXYCODONE. PAST MEDICAL HISTORY: End stage renal disease. Questionable obstructive sleep apnea (BRIAN). Insulin dependent type 2 diabetes. Morbid obesity. Chronic obstructive pulmonary disease (COPD). Depression. Gastroesophageal reflux disease (GERD). Gout. Dyslipidemia. Vitamin D deficiency. PAST SURGICAL HISTORY: Hemodialysis graft. Hernia repair surgery. Appendectomy. SOCIAL HISTORY: Patient was . Quit smoking 40 years ago. Denies alcohol use or illicit drug use. Denies sick contact or recent travel. FAMILY HISTORY: Mother with breast cancer. Brother with unknown type of cancer. REVIEW OF SYSTEMS: Reported nausea, vomiting, abdominal pain, burping, not passing gas, shortness of breath and lower extremity edema. All other review of systems negative. HOME MEDICATIONS: - albuterol nebulizer treatments as needed - Combivent inhalation four times a day - aspirin 81 mg by mouth daily - benzonatate 100 mg by mouth twice a day as needed - brimonidine eye drops twice a day - PhosLo 1334 mg by mouth with meals - artificial tears - vitamin B12 1000 mcg by mouth daily - cyclobenzaprine 10 mg by mouth at bedtime - Colace 100 mg by mouth twice a day - Epogen 10,000 units injection weekly - Uloric 40 mg by mouth Monday, and Monday - fish oil 2000 units by mouth daily - NPH insulin 30 units subcu twice a day - latanoprost eye drops at bedtime - loratadine 10 mg by mouth daily - multivitamin one tablet by mouth daily - mupirocin topical daily - omeprazole 40 mg by mouth daily - senna plus one tablet by mouth twice a day - Zocor 20 mg by mouth at bedtime - valsartan 40 mg by mouth twice a day - Nephrocaps one capsule by mouth daily - vitamin D 1000 units by mouth daily and 50,000 units by mouth weekly on Monday - Ambien 10 mg by mouth at bedtime PHYSICAL EXAMINATION: VITAL SIGNS: Temperature 97.7, pulse 94-100, respirations 20, blood pressure 134/94, pulse oximetry 93% on 3 liters nasal cannula. GENERAL: Patient obese with mild distress. HEENT: Normocephalic, atraumatic. PULMONARY: Diminished breath sounds bilaterally. CARDIAC: Regular S1 and S2. ABDOMEN: Distended, tympanic to palpation, firm. No significant tenderness. Bowel sounds are absent. EXTREMITIES: 1+ bilateral lower extremity edema. Venous stasis skin changes. NEUROLOGIC: No focal deficits. LABORATORY: WBC 31.2, hemoglobin and hematocrit 10.9/34, platelets 522. Chemistries: Sodium 130, potassium 4, chloride 87, bicarb 29, BUN 40, creatinine 6.15, Troponin 0.14. CT scan of the abdomen shows high grade small bowel obstruction. ASSESSMENT/PLAN: This is a 76-year-old male patient with underlying medical history of end stage renal disease, type 2 diabetes insulin dependent, COPD not on oxygen, depression , GERD, gout, dyslipidemia, vitamin D deficiency, questionable obstructive sleep apnea, admitted with severe leukocytosis and small bowel obstruction. PROBLEMS: 1. Small bowel obstruction, likely secondary to hypotension with ischemic colitis. No evidence of perforation at this time. Management as per Dr. Uriarte, surgery. Meropenem started. Patient with stable blood pressure and seems to be a bit fluid overloaded. Will withhold fluids. Nephrology has been consulted. Fluid management as per formula mixer. Patient has end stage renal disease. NG tube to low suction. Nothing by mouth for now. Further management per surgery. Pain management as per surgery. Holding oral medications. 2. Severe leukocytosis. Likely secondary to ischemic colitis. CT scan appreciated. Followup cultures. Meropenem has been started. Continue to monitor. Repeat lactic acid. 3. End stage renal disease. Patient currently nothing by mouth. Fluid management as per formula mixer. Further dialysis as per formula mixer. Monitor electrolytes. 4. Hypoglycemia with type 2 insulin dependent diabetes. Basal insulin dosage has been reduced. Insulin every 6 hours, nothing by mouth for now. Continue to monitor. 5. Chronic obstructive pulmonary disease (COPD). Holding home medication. Nebulizer treatment as needed. Patient currently not having any wheeze. 6. Depression. Holding oral medications. Continue to monitor. 7. GERD. Continue proton pump inhibitor (PPI). Switch to IV. 8. Dyslipidemia. Holding oral medications. 9. Vitamin D deficiency. Holding oral medication. 10. Questionable obstructive sleep apnea. BRIAN protocol. 11. Morbid obesity. Complicating care. 12. Deep vein thrombosis (DVT) prophylaxis. Heparin subcu. DISPOSITION/PLANNING: Further management and orders as per surgery. Medicine will follow. 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 MTDD
--- NOTE | 2017-01-21 15:32 | IPNPDOC ---
Text Note Date of Service The patient was seen on 01/21/17. NOTE Please refer to consult note. Patient with high grade SBO secondary to likely ischemic bowel. with METS>4, ESRD, DMII, Intermediate risk for intermediate risk procedure. Insulin given for hyperglycemia, will repeat fingersticks Q2hr, baseline poor compliance. Given emergent surgery, patient is optimized for OR. VS,Fishbone, I+O VS, Fishbone, I+O Laboratory Tests 01/21/17 09:45 Red Blood Count 3.54 L, Mean Corpuscular Volume 96.0, Mean Corpuscular Hemoglobin 30.8, Mean Corpuscular Hemoglobin Concent 32.1, Red Cell Distribution Width 15.4 H, Neutrophils (%) (Auto) 88.6 H, Lymphocytes (%) (Auto ) 2.3 L, Monocytes (%) (Auto) 7.9 H, Eosinophils (%) (Auto) 0.0, Basophils (%) ( Auto) 0.1, Neutrophils # (Auto) 27.7 H, Lymphocytes # (Auto) 0.7 L, Monocytes # (Auto) 2.5 H, Eosinophils # (Auto) 0.0, Basophils # (Auto) 0.0 Vital Signs Date Time Temp Pulse Resp B/P (MAP) Pulse Ox O2 Delivery O2 Flow Rate FiO2 01/21/17 12:27 56 82 01/21/17 10:42 Nasal Cannula 3.0 01/21/17 10:38 134/94 (107) 01/21/17 09:12 97.7 23 I&O- Last 24 Hours up to 6 AM 01/22/17 06:00 Output Total 2875 ml Balance -2875 ml NESHA GUZMAN MD Jan 21, 2017 15:32
[2017-01-21] MEDS ORDERED: HumuLIN R (REGULAR) INSULIN (NovoLIN R) **100U/ML** PER UNIT SC ONE (15:45)
[2017-01-21] MEDS ORDERED: PANTOPRAZOLE 40MG INJ (PROTONIX) (C9113) IV SCH (18:00)
[2017-01-21] MEDS ORDERED: NS 1,000 ML IV SCH (18:15)
[2017-01-21] MEDS ORDERED: HumaLOG INSULIN (NovoLOG) PER UNIT As Ordered ONE ×2 (18:44→23:53)
[2017-01-21] MEDS ORDERED: HumaLOG INSULIN (NovoLOG) PER UNIT SC ONE (19:15)
[2017-01-21] MEDS ORDERED: NS 0.45% 1,000 ML IV SCH (19:15)
--- NOTE | 2017-01-21 19:24 | MHCR ---
DATE OF CONSULTATION: 01/21/2017 REFERRING PHYSICIAN: Miryam Bocanegra MD. REASON FOR CONSULTATION: To assist in the management of end-stage renal disease and associated complications. The patient is seen in the emergency room at the request of Dr. Bocanegra. HISTORY OF PRESENT ILLNESS: Mr. Mota is a 76-year-old gentleman who is well known to me. He has a known history of longstanding diabetes, hypertension, morbid obesity, chronic obstructive pulmonary disease (COPD), end-stage renal disease and associated complications. He presented to the emergency room today with shortness of breath and recurrent vomiting since last evening. CT scan of abdomen and pelvis done in the emergency room showed high-grade small bowel obstruction and suspicious for pneumatosis intestinalis suggesting small bowel ischemia. The patient has been seen by Dr. Uriarte and is likely to go to the operating room later today. The patient did have hemodialysis yesterday and he was quite hypotensive after dialysis. He was given about 1500 mL normal saline after which his blood pressure improved to about 100 mmHg systolic and he was discharged to home. Now family tells me that he has not been feeling good for the last three days and did not eat much. All night he vomited and had abdominal pain due to which he was brought to the emergency room today. He denies any fever or chills. Family has not noticed any blood or coffee-ground material in his vomitus. He was short of breath on arrival and nasogastric tube has been placed and drained more than 1.5 liters of bilious fluid, following which his symptoms have improved significantly, but he remains quite restless. The patient is seen in the emergency room. His lab work showed a WBC count of 31.2 thousand, hemoglobin 10.9 and hematocrit 34. His lactic acid level is elevated at 3.8. His sodium was low at 130 and potassium 4.0. BUN is 40 and creatinine 6.15. Troponin 0.14 and 0.16 respectively, and a pro BNP level is 37,662. PAST MEDICAL AND SURGICAL HISTORY: Significant for: 1. Longstanding diabetes which has been suboptimally controlled. 2. Morbid obesity. 3. Hypertension. 4. History of congestive heart failure which is managed with hemodialysis. 5. History of coronary artery disease. 6. History of end-stage renal disease requiring maintenance hemodialysis on Monday, Monday and Monday schedule. 7. Hyperlipidemia. 8. Gout. 9. Depression. 10. History of COPD. HOME MEDICATIONS. His home medications include: - Combivent inhaler as needed for shortness of breath - aspirin 81 mg daily - calcium acetate two capsules three times a day with meals - vitamin D 1000 units daily - vitamin B12 1000 mcg daily - Colace 100 mg twice a day - Uloric 40 mg daily - Humulin insulin 30 units twice a day - omeprazole 40 mg daily - simvastatin 20 mg daily - multivitamin one tablet daily - valsartan 40 mg twice a day - Tylenol Extra Strength as needed for pain ALLERGIES: The patient has allergy to CODEINE, SUDAFED and OXYCODONE. PERSONAL AND SOCIAL HISTORY: The patient is and lives with his . He denies any history of alcohol or drug use. He is a former smoker. FAMILY HISTORY: Significant for diabetes and end-stage renal disease. His one daughter is on hemodialysis. REVIEW OF SYSTEMS: The patient denies any fever or chills. Ears, nose and throat are unremarkable. He denies any nosebleeds or sore throat. There is no headache. Cardiovascular system is significant for shortness of breath which has now improved following suctioning of his gastric contents. He denies any chest pain. Respiratory system is significant for a history of COPD. There is no cough or hemoptysis. He denies any pleuritic type of chest pain. Gastrointestinal (GI) system is as per history of present illness. He had poor appetite for the last few days and vomiting nonstop through the night. There was no blood or coffee-ground material in his vomitus. He denies any black colored stools or rectal bleeding. He did have abdominal pain all night and it has improved following nasogastric (NG) tube placement and suctioning. Genitourinary () system is significant for end-stage renal disease. He has no dysuria or hematuria. He has minimal urine output. Endocrine system is significant for secondary hyperparathyroidism in addition to diabetes. His blood sugars usually run on the high side. Musculoskeletal system is significant for chronic degenerative arthritis and morbid obesity. He usually has some leg edema. Hematological system is significant for anemia of chronic kidney disease. He has not been on any anticoagulation. Neurological system is negative for seizures or stroke. Psychosocial system is significant for insomnia and no history of anxiety or depression. Skin is negative for rash or ulcers. PHYSICAL EXAMINATION: The patient is lying in the stretcher at the time of my visit to the emergency room. His temperature is 98 degrees Fahrenheit, heart rate 82 per minute and respiratory rate 24 per minute. Blood pressure 124/60 mmHg and oxygen saturation is in high 80s. He is currently using oxygen via nasal cannula. Head is atraumatic. There is a nasogastric tube in his left nostril. Pupils are equal and reactive to light and sclerae are anicteric. Oral mucosa is somewhat dry. There is no thrush or ulcers. Neck is supple and jugular venous distention (JVD) is minimally elevated. There is no thyroid enlargement. Trachea is midline and there are no abnormal cervical lymph nodes palpable. Heart sounds are regular and lungs clear to auscultation. Abdomen is obese, soft, mildly tender but without any guarding or rigidity. Bowel sounds are not audible. Extremities have no cyanosis or clubbing. He has a left upper arm arteriovenous (AV) fistula which is patent. Lower extremities have mild chronic stasis changes and minimal edema. Skin has no rash or ulcers. Neurologically he is awake, alert and oriented times three. LABORATORY DATA: His WBC count is 31.2, hemoglobin 10.9 and hematocrit 34.0. Platelets 522. INR is 1.27. Sodium 140, potassium 4.0, chloride 87, CO2 of 29, BUN 40 and creatinine 6.15. His glucose was 489 and lactic acid level 3.6. Total bilirubin is 0.4, AST 20, ALT 25, alkaline phosphatase 82, CPK 170 and 233. Troponin is 0.14 and 0.16. Pro BNP level 37,662. CT scan of abdomen and pelvis consistent with high-grade stenosis and pneumatosis intestinlis. Kidneys were atrophic on the CT scan and no hydronephrosis was noted. There was no ascites. PROBLEMS: 1. Shortness of breath: Most likely this was related to recurrent vomiting and small bowel obstruction causing abdominal pain. The patient was hypotensive after dialysis yesterday and received about 1.5 liters of normal saline. However, he has been vomiting due to which he is most likely volume depleted. I would suggest to treat him with normal saline about 75 mL per hour in order to prevent hypotension during or after surgery. His shortness of breath has already improved following suctioning of his gastric contents with nasogastric tube. At present his volume status is well compensated or he could be mildly dehydrated. 2. End-stage renal disease: The patient did complete his dialysis treatment yesterday and he does not have any hyperkalemia or metabolic acidosis at present. We will arrange for hemodialysis while he is in hospital. At present there is no indication for urgent dialysis today. 3. Hyponatremia: He most likely has pseudohyponatremia related to hyperglycemia. We will treat him with normal saline due to volume depletion and hypotension. No other intervention would be indicated at present. 4. Lactic acidosis: Most likely related to ischemic bowel and hypotension. I would suggest to treat him with normal saline and he is going to operating room later today for further investigation of his intra-abdominal problem with possible exploration. 5. Leukocytosis: Most likely this is related to recurrent vomiting and small bowel obstruction with possible ischemia. I do not feel that he has any other acute infections. He will most likely require broad-spectrum antibiotic coverage after surgery. He has already been given ceftriaxone and meropenem in the emergency room which is appropriate. 6. Anemia: His anemia is mild and stable at present. He will need to be monitored postoperatively depending upon the amount of blood loss. This will be managed with hemodialysis as needed. 7. Diabetes with hyperglycemia: Blood sugars should be monitored and kept under control with insulin coverage. The patient is nothing by mouth at present and will need close monitoring of his glucose levels. Thank you for involving me in the care of Mr. Mota. I will follow him along with you.
[2017-01-21] MEDS ORDERED: SUCCINYLCHOLINE 100 MG/5 ML SYRINGE (J0330) As Ordered ONE (20:33)
[2017-01-21] MEDS ORDERED: PHENYLEPHRINE INJ 10MG/ML VIAL (J2370) As Ordered ONE ×2 (20:33→22:06)
[2017-01-21] MEDS ORDERED: PHENYLephrine HCL 500 MCG/5 ML (100MCG/ML) SYRINGE (J2370) As Ordered ONE (20:33)
[2017-01-21] MEDS ORDERED: LIDOCAINE 2% INJ 100 MG/5 ML SDV (FOR ANES.) As Ordered ONE (20:33)
[2017-01-21] MEDS ORDERED: ROCURONIUM BROMIDE 50 MG/5 ML VIAL As Ordered ONE (20:33)
[2017-01-21] MEDS ORDERED: fentaNYL 250 MCG/5 ML INJECTION (J3010) As Ordered ONE (20:33)
[2017-01-21] MEDS ORDERED: ETOMIDATE INJ 20MG/10ML VIAL As Ordered ONE (20:33)
[2017-01-21] MEDS ORDERED: LEVEMIR (INSULIN DETEMIR) 1 UNITS/0.01ML SC SCH (21:00)
[2017-01-21] MEDS ORDERED: HEPARIN SOD (PORCINE) 5000 UNITS/ML VIAL SC SCH (22:00)
[2017-01-21] MEDS ORDERED: FENTANYL 2MCG/ML BUPIVACAINE 0.0625% NACL 250ML IV BAG As Ordered ONE (23:24)
[2017-01-21] MEDS ORDERED: PROPOFOL 1,000 MG/100 ML VIAL As Ordered ONE (23:38)
[2017-01-22] VITALS (36 sets, daily range): BP systolic 48–187; BP diastolic 30–102; O2SAT 99
[2017-01-22] MEDS: PROPOFOL 1,000 MG in APPROPRIATE DILUENT 1 EA IV SCH ×2 (00:16→06:45)
[2017-01-22] MEDS ORDERED: ALBUTEROL SULFATE 2.5 MG/0.5 ML INH NEB SOLN NEB PRN (00:30)
[2017-01-22] MEDS ORDERED: MIDAZOLAM INJ 2 MG/2 ML VIAL (J2250) IV PRN (00:30)
[2017-01-22] MEDS ORDERED: MORPHINE 2 MG/ML 1ML SYRINGE IV PRN (00:30)
[2017-01-22] MEDS ORDERED: EPIDURAL/PCA KEYS XX PRN (01:30)
[2017-01-22] MEDS ORDERED: diphenhydrAMINE INJ 50MG/ML VIAL (J1200) IV PRN (01:30)
[2017-01-22] MEDS ORDERED: FENTANYL/BUPIVACAINE/NACL BAG 250 ML EPIDURAL SCH (01:30)
[2017-01-22] MEDS ORDERED: METOCLOPRAMIDE INJ 10MG/2ML VIAL (J2765) IV PRN (01:30)
[2017-01-22] MEDS ORDERED: WALLBOXKEY XX PRN (01:30)
[2017-01-22] MEDS ORDERED: ONDANSETRON 4MG/2ML VIAL (J2405) IV PRN (01:30)
[2017-01-22] MEDS ORDERED: NALOXONE INJ 0.4 MG/1 ML VIAL (J2310) IV PRN (01:30)
[2017-01-22] MEDS ORDERED: PHENYLEPHRINE INJ 10MG/ML VIAL (J2370) As Ordered ONE (01:45)
[2017-01-22 01:47] LABS: ABG HCO3 25.1 MEQ/L (22.0-26.0); ABG PARTIAL PRESSURE CO2 29.8 mmHg (35.0-45.0); ABG PARTIAL PRESSURE O2 207.9 mmHg (75.0-100.0); ABG STANDARD HCO3 27.1 MEQ/L (22.0-26.0); ABG pH (ARTERIAL) 7.543 UNITS (7.350-7.450)
[2017-01-22] MEDS ORDERED: SODIUM CHLORIDE 0.9% 1000 ML IV ONE (02:00)
[2017-01-22] MEDS ORDERED: PHENYLEPHRINE HCL INJ 50 MG in D5W 500 ML IV SCH (02:00)
[2017-01-22] MEDS ORDERED: ACETAMINOPHEN 650 MG SUPP PR PRN (02:15)
[2017-01-22] MEDS: HumaLOG INSULIN (NovoLOG) PER UNIT SC SCH ×3 (02:24→05:16)
[2017-01-22] MEDS: IPRATROPIUM 0.5MG/ALBUTEROL 2.5MG INH SOL UD 3ML (DUONEB)(J7620) NEB SCH ×2 (03:27→07:58)
[2017-01-22] MEDS: LACRILUBE (AKWA TEARS) OPHTH OINT 3.5 GM OU SCH ×2 (03:33→08:19)
--- NOTE | 2017-01-22 03:33 | CCN ---
DATE OF SERVICE: 01/22/2017 NOTE: Asked by Dr. Francis to emergently evaluate Mr. Mota for acute respiratory failure leading to mechanical ventilation postoperatively. Mr. Mota is a 76-year-old white male with a past medical history notable for insulin-requiring diabetes mellitus, morbid obesity, hypertension, congestive heart failure (CHF), coronary artery disease (CAD), end-stage renal disease requiring dialysis, and per the chart chronic obstructive pulmonary disease (COPD) (I have no spirometric values), who presented to the emergency department today with shortness of breath and recurrent emesis since the previous evening. His abdominal CT scan showed a high-grade small bowel obstruction and was suspicious for pneumatosis intestinalis. He was emergently taken to the operating room where he underwent resection of approximately 5 feet of his jejunum. He was transiently on phenylephrine during the surgery. His crystalloid input was around 1000 and estimated blood loss about 100 mL. It should be noted that he had received dialysis on Monday and became quite hypotensive and in fact was given 1500 mL of normal saline before being discharged to home. He was evaluated by Dr. Cobb prior to his surgery and his feeling at that time was that he was most likely volume depleted. Currently, Mr. Mota is intubated and synchronous with the ventilator. MEDICATIONS: On admission: - Combivent metered-dose inhaler (MDI) as needed - aspirin 81 mg by mouth daily - calcium acetate two capsules three times a day with meals - vitamin D 1000 units daily - vitamin B12 1000 mcg daily - Colace 100 mg twice a day - Uloric 40 mg by mouth daily - Humulin insulin 30 units twice a day - omeprazole 40 mg by mouth daily - simvastatin 20 mg by mouth daily - multivitamin one by mouth daily - valsartan 40 mg by mouth twice a day - Tylenol Extra Strength as needed for pain ALLERGIES: CODEINE, SUDAFED, and OXYCODONE. I do not know what happens with these medications. PHYSICAL EXAMINATION: GENERAL: Mr. Mota is lying in bed in no acute distress and synchronous with the ventilator. VITAL SIGNS: Temperature 99.4, pulse 97, blood pressure 88/50 with a MAP of 63, respiratory rate 14 (he had been breathing above the vent but was just given some sedation), SpO2 is 97% on an FiO2 of 0.55. HEENT: Anicteric. Pupils pinpoint. Nares: Patent bilaterally. Oropharynx: Endotracheal (ET) tube in place. Dry mucosa. NECK: Supple, unable to appreciate JVP, without thyromegaly or masses. Trachea is midline. LYMPHATICS: Without cervical or supraclavicular lymphadenopathy. CHEST: Normal shape. LUNGS: Symmetric excursion, good air entry, no wheeze, rhonchi or crackle on tidal excursion. Normal inspiratory to expiratory (I to E). No accessory muscle usage or retractions. CARDIOVASCULAR: Regular rate and rhythm with a normal S1, S2. No murmur, rub or gallop appreciated. ABDOMEN: Absent bowel sounds, soft, dressing clean and dry, G-tube in place. EXTREMITIES: Left upper extremity fistula. There is also bruising on the left inner arm. Sequential compression devices (SCDs) and thromboembolism deterrent stockings (TEDS) in place. (Per the HORTICULTURE/FLORICULTURE TEACHERcw operator, the lower extremities were cyanotic with sloughing.) Without clubbing or cyanosis of his toes in my view. Palpable pedal pulses bilaterally. LABORATORY DATA: CBC shows a hemoglobin of 10.9, hematocrit of 34.0, platelet count 522,000, white blood cell count 31,200, with a differential of 89% neutrophils, 2% lymphocytes, and 8% monocytes. Chemistry shows sodium 130, potassium 4.0, chloride 87, bicarbonate 29, anion gap 14, BUN 40, creatinine 6.15, glucose 489, calcium 9.2, total bilirubin 0.4, direct bilirubin 0.1, AST 20, ALT 25, alkaline phosphatase 82, CK 170, CK-MB 4.1, troponin I 0.14, BNP 37,662, total protein 7.9, albumin 3.1, TSH 2.6. Repeat enzymes showed a CK-MB of 4.4 and a troponin I of 0.16. Initial lactic acid this morning was 3.6 with a reflex 3.8. INR 1.27. I reviewed his chest CT scan, as well as the report from earlier today. That showed normal appearing cardiac silhouette and pulmonary vascular shadows. No mediastinal or hilar adenopathy. No emphysematous changes. No consolidated regions. Minimal bibasilar atelectasis. I reviewed his chest x-ray postoperatively, which showed normal appearing cardiac silhouette and likely pulmonary vascular shadows. No acute infiltrates. ET tube is in good position. IMPRESSION: 1. Acute respiratory failure postoperatively leading to mechanical ventilation. 2. Postoperative day zero status post resection of 5 feet of jejunum and placement of a G-tube. 3. End-stage renal disease requiring hemodialysis. 4. Diabetes mellitus, insulin requiring. 5. Obesity. 6. Obstructive sleep apnea (BRIAN), noncompliant with continuous positive airway pressure (CPAP). Also noncompliant with nocturnal oxygen. 7. Coronary artery disease (CAD). 8. History of congestive heart failure (CHF). 9. Chronic obstructive pulmonary disease (COPD) per chart (do not know spirometric values). 10. Deep venous thrombosis (DVT) prophylaxis with sequential compression devices (SCDs) and thromboembolism deterrent stockings (TEDS). Will not use medication until okayed by surgery. 11. Stress ulcer prophylaxis with intravenous (IV) proton pump inhibitor. 12. Infectious disease. On meropenem. 13. Nutrition: Currently nothing by mouth. RECOMMENDATIONS: 1. Will place him on lung protective strategy. Hopefully, he will be able to be extubated in the near future. 2. However, upon extubation, he will still require pain medications and his airway is at risk because of his untreated sleep apnea and I understand he was a difficult intubation. 3. Therefore we will plan on transiently, or at least having available, non-invasive mechanical ventilation (NIMV) when he is able to be extubated. 4. If he requires vasopressor tonight, will need to use phenylephrine as he does not have central access. 5. Anticipate that he will need some IV fluids this evening if he third spaces, though need to be cautious of his end-stage renal disease. 6. Will use morphine 2 mg every 2 hours as needed. It needs to be remembered that he has a fentanyl epidural. That also has to be considered in conjunction with his obstructive sleep apnea. Critical care time: 35 minutes not including procedure time.
[2017-01-22 04:37] LABS: MEAN CORPUSCULAR HEMOGLOBIN 30.3 pg (27.0-33.0); MEAN CORPUSCULAR HGB CONC 31.6 g/dl (32.0-36.5); MEAN CORPUSCULAR VOLUME 95.8 fl (80.0-96.0); PLATELET COUNT, AUTOMATED 477 10^3/uL (150-450); RED CELL DISTRIBUTION WIDTH 15.5 % (11.5-14.5); WHITE BLOOD COUNT 15.8 10^3/uL (4.0-10.0)
[2017-01-22 04:39] LABS: ADD MANUAL DIFFER YES; DIFF SLIDE NUMBER 74; LEFT SHIFT POS FLAG; POSITIVE MORPH POS FLAG
[2017-01-22 04:48] LABS: INR 1.69
[2017-01-22 04:58] LABS: ALBUMIN 2.2 GM/DL (3.2-5.2); ALBUMIN/GLOBULIN RATIO 0.56 (1.00-1.93); BILIRUBIN,TOTAL 0.3 MG/DL (0.2-1.0); CALCIUM LEVEL 8.3 MG/DL (8.8-10.2); CREATININE FOR GFR 7.25 MG/DL (0.70-1.30); GLOMERULAR FILTRATION RATE 7.9 (>42); MAGNESIUM LEVEL 1.5 MG/DL (1.8-2.4); PHOSPHORUS LEVEL 2.5 MG/DL (2.5-4.9); POTASSIUM SERUM 4.3 MEQ/L (3.5-5.1); TOTAL PROTEIN 6.1 GM/DL (6.4-8.2)
[2017-01-22 05:22] LABS: BANDS 1 % (< 11)
[2017-01-22 05:23] LABS: ANISOCYTOSIS 1+
[2017-01-22 05:24] LABS: TOXIC VACUOLATION 1+
--- NOTE | 2017-01-22 08:42 | REP ---
Clinical: Status post intubation. Comparison: 01/21/2017. Findings: Endotracheal tube approximately 2.4 cm above the kianna. Visualized mediastinum and cardiac silhouette stable. Left perihilar and basilar atelectasis cannot be excluded. No obvious effusion. No pneumothorax. Skeletal structures intact. Impression: 1. Endotracheal tube approximately 2.4 cm above the kianna. 2. Left perihilar and basilar atelectasis cannot be excluded. Signed by Barron Espinoza MD 01/22/2017 08:34 A
[2017-01-22] MEDS ORDERED: CHLORHEXIDINE ORAL RINSE 0.12%/15ML 120ML BOTTLE MT SCH (09:00)
[2017-01-22] MEDS ORDERED: MAGNESIUM SULFATE 1 GM/100 ML D5W BAG (10MG/ML) (J3475) As Ordered ONE (09:07)
--- NOTE | 2017-01-22 09:35 | REP ---
Clinical: Status post intubation. Comparison: 01/21/2017. Findings: Endotracheal tube is identified approximately 2.8 cm above the kianna. Stable cardiomegaly is suggested along with stable chronic interstitial changes. Linear plate-like atelectasis in the right lower lung zone is identified. Small pleural effusions cannot be excluded. Impression: 1. Endotracheal tube 2.8 cm above the kianna. 2. Trace right lower lobe plate-like atelectasis. Cannot exclude small pleural reaction/effusions. Signed by Barron Espinoza MD 01/22/2017 09:26 A
[2017-01-22] MEDS ORDERED: EPINEPHrine 1MG/10ML SYRINGE 1.5IN ONE (10:13)
[2017-01-22] MEDS ORDERED: SODIUM BICARBONATE 8.4% INJ 50 ML SYRINGE ONE (10:13)
--- NOTE | 2017-01-22 11:52 | IPNPDOC ---
Text Note Date of Service The patient was seen on 01/22/17. NOTE Max cart was called at 9:00 am. Patient was in asystole CPR was immediately started received first dose of epi continued to be in asystole, after second dose of epi rhythm check showed v fib and shock was administered. Pateint was already intubated so was being bagged through the tube. Had central access and peripheral lines. Following the shock patient went into PEA. Labs reviewed showed low mag, give 1 mag run , cpr continued with 3 more rounds of epi . 1 dose of bicarb was given after fourth epi. Patient continued to be in PEA. Code was terminated after [address] Uriarte was informed. Family was also informed at the beginning of the code. They were on their way . VS,Fishbone, I+O VS, Fishbone, I+O Laboratory Tests 01/22/17 04:16 Red Blood Count 3.30 L, Mean Corpuscular Volume 95.8, Mean Corpuscular Hemoglobin 30.3, Mean Corpuscular Hemoglobin Concent 31.6 L, Red Cell Distribution Width 15.5 H, Calcium Level 8.3 L, Phosphorus Level 2.5, Aspartate Amino Transf (AST/SGOT) 44 H, Alanine Aminotransferase (ALT/SGPT) 38, Alkaline Phosphatase 62, Total Bilirubin 0.3, Total Protein 6.1 #L, Albumin 2.2 #L Vital Signs Date Time Temp Pulse Resp B/P (MAP) Pulse Ox O2 Delivery O2 Flow Rate FiO2 01/22/17 08:00 Ventilator 40 01/22/17 07:58 99 01/22/17 07:58 102 20 01/22/17 07:00 95/55 (68) 01/22/17 06:00 100.9 01/21/17 19:00 5 I&O- Last 24 Hours up to 6 AM 01/23/17 06:00 Intake Total 0 ml Output Total 0 ml Balance 0 ml MARIO ARIAS MD Jan 22, 2017 11:52
[2017-01-22] MEDS ORDERED: MEROPENEM INJ 500 MG in APPROPRIATE DILUENT 1 EA IV SCH (16:00)
--- NOTE | 2017-01-23 07:21 | RO ---
DATE OF PROCEDURE: 01/21/2017 PREOPERATIVE DIAGNOSIS: Intestinal ischemia and infarction. POSTOPERATIVE DIAGNOSIS: Jejunal infarction. PROCEDURES PERFORMED: Exploratory laparotomy with jejunal resection and anastomosis and placement of a Thomason gastrojejunostomy tube. SURGEON: Dr. Kirit Uriarte. ANESTHESIA: General. INDICATIONS FOR PROCEDURE: The patient is a 76-year-old man with multiple medical issues which include obesity, chronic obstructive pulmonary disease (COPD), diabetes mellitus, and end-stage renal disease on hemodialysis. He apparently suffered some hypotension at the conclusion of dialysis on January 20. He received some normal saline after dialysis to bring his pressure up. He noted the onset of nausea and vomiting on the evening of the . This persisted overnight. He noted some abdominal distension and presented at approximately 9 o'clock in the morning on the . His evaluation revealed a significant elevation of his white blood cell count. He had an elevated lactic acid and a CT scan of the abdomen showed changes in the proximal jejunum which I felt were consistent with ischemia and infarction. He is now for exploratory laparotomy. OPERATIVE PROCEDURE: The patient had an epidural catheter placed preoperatively by anesthesia for pain management. He was taken to the operating room and placed under general endotracheal anesthesia. Attempts to place a right sided arterial line were unsuccessful. The patient's abdomen was prepped and draped in a sterile fashion. A nasogastric tube had been placed in the ER and was draining some brownish fluid. The abdomen was entered through an upper midline incision. This was deepened through the abundant subcutaneous tissues and the fascia was opened along the midline and the peritoneum entered. On entering the abdomen, there was some lightly yellow turbid fluid identified and culturettes were obtained for aerobic and anaerobic culture. The small and large bowel was all generally quite dilated with air. The stomach was palpated and contained a moderate amount of fluid still despite the presence of the NG tube. Palpation within the abdomen revealed some increased exudate and turbid fluid in the left upper quadrant and just inferior to the transverse colon. As the small bowel was mobilized by hand, it was identified that the proximal jejunum over a perhaps 2 foot segment had patchy necrotic areas along the antimesenteric surface. Distal to this, there was a short segment of normal appearing bowel and then distal to this was another roughly one foot section of jejunum that had patchy erythematous spots. The remainder of the small bowel, though filled with fluid and air appeared normal. The colon was quite distended with air but all appeared viable. The liver appeared normal. Inspection showed that the ischemic segment of the jejunum extended all the way proximally to the ligament of Treitz. Initially the jejunum was divided at the proximal and distal extents of the obvious areas of infarction with a margin of healthy appearing tissue using loads of the 100 mm linear cutter stapler. The harmonic scalpel was used to divide the mesentery along the length of this bowel staying about 2 cm from the edge of the bowel to be resected. This was passed off for permanent pathology. After inspecting the remaining small bowel further, I elected to resect an additional 2 to 2-1/2 feet to remove all of the area that appeared to have some degree of significant ischemic change. Therefore the bowel was transected again with the linear cutter 100 stapler and the mesentery was divided. In total approximately 4-1/2 to 5 feet of small bowel all from the proximal jejunum was resected. A long pool sucker was used to suction a large amount of fluid and air from the small bowel. I then proceeded to begin an anastomosis of the end of the jejunum to the jejunum at the ligament of Treitz. These were brought into apposition with several tacking sutures of #3-0 Vicryl and a [id number] anastomosis was begun with a linear cutter stapler. On inspecting the bowel prior to closing the residual opening with the TX60, the mucosa of the proximal end of the bowel was noted to have suffered significant damage with areas of sloughing and necrosis. I felt this would make for an unsafe anastomosis so the end of the jejunum was cut back further and it was necessary to divide some of the peritoneal attachments along the ligament of Treitz to have enough bowel for an anastomosis. The anastomosis was then performed again using a linear cutter stapler. This time a linear cutter 55. Inspection showed that the mucosa of both ends of the bowel was healthy and pink. The residual opening was closed with a TX60G stapler. Additional reinforcing sutures of #3-0 silk were placed. The abdomen had been irrigated on initial exploration and additional irrigation was performed. There was some spillage of small-bowel contents during the course of the manipulation of the bowel from the anastomosis. The completed anastomosis looked healthy and appeared to be well vascularized. I elected to place a Thomason gastrostomy tube to decompress the stomach and also offer the option of enteral feeding if his postoperative course were to become prolonged. Therefore the anterior surface of the midbody of the stomach was grasped with a Idalou. The 18-Tajik Thomason tube was inserted through a small stab wound above and to the left of the upper end of the incision. Two concentric pursestrings of #0 Vicryl were placed in the wall of the stomach and a gastrotomy was made. The tube was inserted and directed through the pylorus and the balloon was then inflated with 20 mL of water. The inner pursestring was tied down and then used to suture the stomach to the anterior abdominal wall and the outer pursestring was then also tied down and used to suture the stomach to the anterior abdominal wall. Final inspection revealed the remaining bowel all to be viable. The abdomen was irrigated with some additional warm saline and this was then all removed as thoroughly as possible. The abdomen was closed with interrupted sutures of #1 Vicryl. As the fascia was closed, retention sutures of #1 Prolene were also placed using latex bolsters. A total of five retention sutures were placed. The patient appeared to tolerate the procedure acceptably. His blood pressure was somewhat low and he did receive some Wilfredo-Synephrine to boost his pressure. The decision was made not to extubate the patient at the conclusion of the procedure given his degree of instability and he was transported intubated and sedated to the recovery room in critical condition. SHARA
--- NOTE | 2017-01-23 08:22 | ECGEPIP ---
Stationary ECG Study [facility] - ED Test Date: 2017-01-21 Pat Name: SAMINA HERNANDEZ Department: Room: - Gender: M Dual Rate Supervisor: saritha : 1940 Requested By: Francesca Brody Order Number: [id number] Reading MD: Sanford Aguirre Measurements Intervals [place] Rate: 104 P: MT: 0 QRS: -67 QRSD: 136 T: 18 QT: 352 QTc: 465 Interpretive Statements ATRIAL FIBRILLATION WITH RAPID VENTRICULAR RESPONSE WITH ABERRANT CONDUCTION OR VENTRICULAR PREMATURE COMPLEXES INDETERMINATE AXIS RIGHT BUNDLE BRANCH BLOCK LEFT ANTERIOR FASCICULAR BLOCK NO PRIORS FOR COMPARISON Electronically Signed On 01-23-2017 8:22:37 EST by Sanford Aguirre
--- NOTE | 2017-02-06 12:35 | DSES ---
DATE OF ADMISSION: 01/21/2017 DATE OF DISCHARGE: Patient and was discharged on 01/22/2017. ADMITTING DIAGNOSIS: Intestinal ischemia with sepsis. HISTORY OF THE PRESENT ILLNESS: Patient is a 76-year-old, obese man with underlying diabetes mellitus, chronic obstructive pulmonary disease (COPD), and end-stage renal disease on hemodialysis, who had an episode of hypotension at the conclusion of dialysis on 01/20/2017. He required greater than a liter of saline to bring up his blood pressure. He felt weak after returning home and overnight developed what he described as some shortness of breath. He felt poorly and came to the emergency department. He was found to have a marked elevation of his white blood cell count to 31,000. A CT scan of the abdomen and pelvis showed changes of pneumatosis in the proximal jejunum consistent with ischemia/infarction. The patient was admitted for exploratory laparotomy for his apparent intestinal infarction. HOSPITAL COURSE: The patient received antibiotics. He was counseled that given his underlying medical conditions that he was a very high risk for complications following surgery. He elected to proceed with exploratory laparotomy. A consultation was obtained from Dr. Newton of the hospitalist service. The patient was taken to the operating room where he underwent exploratory laparotomy. At surgery, he was found to have an obvious infarction of the proximal jejunum right up to the level of the ligament of Treitz. Approximately 4 feet of small bowel were resected and a primary anastomosis was performed. The abdomen was irrigated and I elected to place a Thomason gastrojejunostomy tube for drainage and tube feedings post-op. The patient tolerated the procedure fairly well. He was left intubated and taken to the recovery room, sedated and intubated. He was transferred to the intensive care unit. He was continued on some intravenous (IV) maintenance fluid. Antibiotics were continued. He was seen by Dr. Souza in consultation for management of the ventilator. The patient had received small doses of phenylephrine to support his blood pressure post-op. He had postoperative labs on the morning of 01/22/2017, which were surprisingly quite improved. His white count was down to 16,000 and his hematocrit remained at 32%. Chemistries showed a BUN of 54 and a creatinine of 7, consistent with his end-stage renal disease. His potassium was only 4.3. Unfortunately, at approximately 9 o'clock in the morning, the patient developed asystole. A max cart was called and attempts at rest of resuscitation were made without success. The patient was pronounced at 0921 hours 01/22/2017. FINAL DIAGNOSES: 1. Sepsis secondary to intestinal infarction. 2. Proximal jejunal infarction presumed secondary to hypotension. 3. Morbid obesity. 4. End-stage renal disease on hemodialysis. 5. Chronic obstructive pulmonary disease. 6. Diabetes mellitus. 7. Glaucoma. PROCEDURE PERFORMED: Exploratory laparotomy with jejunal resection and anastomosis and placement of a Thomason gastrojejunostomy tube. DISPOSITION: The patient was pronounced at 0921 hours in the morning of 01/22/2017.
== END 2017-01-22 09:21 | disposition expired | DRG 853 ==
LOC: M ED 09:12 → M ED INP 17:25 → M ICU 01-22 00:34
PROVIDERS: ADMIT Surgery; ATTEND Surgery
PROC: 0D160ZA Bypass Stomach to Jejunum, Open Approach (ICD-10-PCS; 2017-01-21)
PROC: 0DB80ZZ Excision of Small Intestine, Open Approach (ICD-10-PCS; principal; 2017-01-21 17:00)
DX: A41.9 Sepsis, unspecified organism (principal); K55.021 Focal (segmental) acute infarction of small intestine; N18.6 End stage renal disease; J96.00 Acute respiratory failure, unspecified whether with hypoxia or hypercapnia; K56.609 Unspecified intestinal obstruction, unspecified as to partial versus complete obstruction; E87.2 Acidosis; E87.1 Hypo-osmolality and hyponatremia; E11.65 Type 2 diabetes mellitus with hyperglycemia; G47.33 Obstructive sleep apnea (adult) (pediatric); I46.9 Cardiac arrest, cause unspecified; E66.01 Morbid (severe) obesity due to excess calories; J44.9 Chronic obstructive pulmonary disease, unspecified; H40.9 Unspecified glaucoma; K21.9 Gastro-esophageal reflux disease without esophagitis; M10.9 Gout, unspecified; E78.5 Hyperlipidemia, unspecified; Z88.5 Allergy status to narcotic agent; Z88.8 Allergy status to other drugs, medicaments and biological substances; E55.9 Vitamin D deficiency, unspecified; Z87.891 Personal history of nicotine dependence; Z79.52 Long term (current) use of systemic steroids; Z79.899 Other long term (current) drug therapy; Z79.4 Long term (current) use of insulin; F32.9 Major depressive disorder, single episode, unspecified; I25.10 Atherosclerotic heart disease of native coronary artery without angina pectoris; I50.9 Heart failure, unspecified